=== PATIENT | male | born 1990 | race Caucasian/White ===

== ENCOUNTER 2017-11-15 23:34 | Observation (INO) | payer OTHER ==
[2017-11-15] MEDS ORDERED: ONDANSETRON 4 MG/2 ML VIAL IVP ONE (23:45)
[2017-11-15] MEDS ORDERED: PANTOPRAZOLE SODIUM 80 MG in NS 100 ML IV SCH (23:45)
[2017-11-15] MEDS ORDERED: NS 1,000 ML IV ONE (23:45)
--- NOTE | 2017-11-15 23:45 | EDPHY ---
H & P Stated Complaint: vomiting bright red HPI/ROS: HPI CHIEF COMPLAINT: Hematemesis x2 HISTORY OF PRESENT ILLNESS: This patient is otherwise healthy 27-year-old male does have significant past medical history for reflux, additionally hiatal hernia, and used to be on a PPI but has not taken in 6 months he presents emergency room with 2 episodes of hematemesis he describes bright red blood that filled his mouth. He denies forceful vomiting but states more for reflux and feel his mouth with bright red blood. He denies lower abdominal pain. He does state that he has a history of a hiatal hernia and bad reflux. He has never vomited blood before. He denies black tarry stools. Denies trauma. Denies recent illness or fever. States he has had an EGD in the past. Past Medical History: GERD, hiatal hernia Past Surgical History: Denies any surgical history Social History: Denies daily use of drugs alcohol tobacco. Family History: Noncontributory ROS REVIEW OF SYSTEMS: A comprehensive 10 point review of systems is otherwise negative aside from elements mentioned in the history of present illness. Exam Constitutional appears well nontoxic triage nursing summary reviewed, vital signs reviewed, awake/alert. Eyes normal conjunctivae and sclera, EOMI, PERRLA. HENT normal inspection, atraumatic, moist mucus membranes, no epistaxis, neck supple/ no meningismus, no raccoon eyes. Respiratory clear to auscultation bilaterally, normal breath sounds, no respiratory distress, no wheezing. Cardiovascular rate normal, regular rhythm, no murmur, no edema, distal pulses normal. Gastrointestinal soft, non-tender, no rebound, no guarding, normal bowel sounds, no distension, no pulsatile mass. Genitourinary no CVA tenderness. Musculoskeletal no midline vertebral tenderness, full range of motion, no calf swelling, no tenderness of extremities, no meningismus, good pulses, neurovascularly intact. Skin pink, warm, & dry, no rash, skin atraumatic. Neurologic awake, alert and oriented x 3, AAOx3, moves all 4 extremities equally, motor intact, sensory intact, CN II-XII intact, normal cerebellar, normal vision, normal speech. Psychiatric normal mood/affect. Heme/Lymph/Immune no lymphadenopathy. Differential Diagnosis: Includes but is not limited to in a particular order acute upper GI bleed, peptic ulcer disease, esophageal tear, Mariela-Espinoza tear , esophageal varices Medical Decision Making: Plan for this patient IV establishment blood draw, type and screen, IV fluid bolus, IV Zofran, IV Protonix bolus and IV Protonix drip. Will most likely admit to the hospital for acute upper GI bleed. Consult GI. Re-evaluation: 1248AM: Blood work reviewed. H&H are stable. Vital signs are stable. He did have 1 episode of vomiting of hematemesis here in the emergency room. Was dark colored in nature. Patient has been typed and screen. He has good IV access. Patient received fluid bolus. Protonix bolus ordered and Protonix drip. Patient be admitted to the hospitalist service for acute upper GI bleed. Close monitoring. Gastroenterology be consult as well. ED x-ray chest one view upright. Negative for acute cardiopulmonary disease. 1252: Did re-evaluate the patient is resting comfortably no complaints. He did vomit 1 time here in the emergency room with dark hematemesis. 1255: Consult Gastroenterology Dr. Jones. Plan on seeing the patient and agrees with current plan and management. 0107AM: Spoke with Dr. Luis, agrees to admit. Patient hemodynamically stable plan for EGD in the morning. Protonix bolus Protonix drip right now. Type and screen. Patient has 2 large-bore IVs. Blood pressures been stable. Source: Patient - Personal History Current Tetanus/Diphtheria Vaccine: Yes Current Tetanus Diphtheria and Acellular Pertussis (TDAP): Yes - Medical/Surgical History Hx Asthma: No Hx Chronic Respiratory Disease: No Hx Diabetes: No Hx Cardiac Disease: No Hx Renal Disease: No Hx Cirrhosis: No Hx Alcoholism: No Hx HIV/AIDS: No Hx Splenectomy or Spleen Trauma: No Other PMH: GERD - Social History Smoking Status: Never smoked Constitutional: Initial Vital Signs Temperature (C) 37.2 C 11/15/17 23:39 Heart Rate 87 11/15/17 23:39 Respiratory Rate 18 11/15/17 23:39 Blood Pressure 137/97 H 11/15/17 23:39 O2 Sat (%) 97 11/15/17 23:39 O2 Delivery Mode Room Air Allergies/Adverse Reactions: bee venom protein (honey bee) Allergy (Verified 11/15/17 23:42) Home Medications: Medication Instructions Recorded Acetaminophen [Tylenol 325mg (*)] 650 mg PO Q4HRS PRN tab 11/16/17 Pantoprazole Sodium [Protonix 40mg 40 mg PO BID #60 tab 11/16/17 (*)] Ranitidine HCl 300 mg PO HS #60 tablet 11/16/17 Sucralfate [Carafate 1 GM (*)] 1 gm PO BID #60 tab 11/16/17 Medical Decision Making - Data Points Laboratory Results: Laboratory Results 11/15/17 23:55 11/16/17 00:48 Medications Given: Discontinued Medications Sodium Chloride (Ns) 1,000 mls @ 0 mls/hr IV EDNOW ONE; Wide Open PRN Reason: Protocol Stop: 11/15/17 23:46 Last Admin: 11/16/17 00:08 Dose: 1,000 mls Pantoprazole Sodium 80 mg/ (Sodium Chloride) 100 mls @ 10 mls/hr IV Q10H [facility] Stop: 05/14/18 23:44 Last Admin: 11/16/17 01:08 Dose: 100 mls Sodium Chloride (Ns) 1,000 mls @ 125 mls/hr IV CONT TINY Stop: 05/15/18 01:29 Last Admin: 11/16/17 02:34 Dose: 1,000 mls Pantoprazole Sodium 80 mg/ (Sodium Chloride) 100 mls @ 10 mls/hr IV Q10H [facility] Stop: 05/15/18 10:59 Last Admin: 11/16/17 12:21 Dose: 100 mls Lactated Ringer's (Lr) 1,000 mls @ 0 mls/hr IV ONCE ONE PRN Reason: Per Protocol Stop: 11/16/17 09:41 Last Admin: 11/16/17 12:27 Dose: Not Given Ondansetron HCl (Zofran) 4 mg IVP EDNOW ONE Stop: 11/15/17 23:46 Last Admin: 11/16/17 00:05 Dose: 4 mg Pantoprazole Sodium (Protonix) 40 mg IVP EDNOW ONE Stop: 11/15/17 23:52 Last Admin: 11/16/17 00:07 Dose: 40 mg Sucralfate (Carafate) 1 gm PO BID [facility] Stop: 05/15/18 13:14 Last Admin: 11/16/17 13:25 Dose: 1 gm Departure - Departure Disposition: [facility] In[facility] Acute Clinical Impression: GIB (gastrointestinal bleeding) Qualifiers: GI bleed type/associated pathology: unspecified gastrointestinal hemorrhage type Qualified Code(s): K92.2 - Gastrointestinal hemorrhage, unspecified Condition: Good
[2017-11-15] MEDS ORDERED: PANTOPRAZOLE SODIUM 40 MG VIAL IVP ONE (23:51)
[2017-11-16 00:21] LABS: INR 0.98 (0.83-1.16); PROTIME(PATIENT) 13.2 SEC (12.0-15.0)
[2017-11-16 00:31] LABS: PLATELET COUNT 326 10^3/uL (150-400)
[2017-11-16] MEDS ORDERED: ONDANSETRON 4 MG/2 ML VIAL IVP PRN (01:28)
[2017-11-16] MEDS ORDERED: LORazepam 2 MG/ML INJ IVP PRN (01:28)
[2017-11-16] MEDS ORDERED: ACETAMINOPHEN 325 MG TAB PO PRN (01:28)
[2017-11-16] MEDS ORDERED: NS 1,000 ML IV SCH (01:30)
--- NOTE | 2017-11-16 03:41 | GHP ---
[f rep st] HISTORY AND PHYSICAL DATE OF ADMISSION: 11/16/2017 PRIMARY CARE PHYSICIAN: Unlisted. SOURCE: Patient provides history, appears reliable. at bedside and supplements history. EMR reviewed and case discussed with ED provider. CHIEF COMPLAINT: Hematemesis. HISTORY OF PRESENT ILLNESS: This is a very pleasant 27-year-old gentleman with past medical history significant for GERD and hiatal hernia, who presents to the emergency department with complaints of hematemesis which started approximately 10:30 this evening. Patient reports that he had a first episode of bright red blood in his mouth of reflux-type symptoms. He denies any nausea. No abdominal pain. No distention. Patient reports a second episode at home prior to presenting in the emergency department that was darker in color. It appeared to be closer to coffee-grounds. Patient was previously placed on a PPI and last took consistently any dosing approximately 6 months ago. He denies any history of melena. No abdominal pain. No cramping. He did report 1 episode of diarrhea early in the morning, approximately 11 a.m. He does report a history of chronic persistent substernal reflux-type symptoms that have been more acutely worsened in the last day, and progressively worsening over the past month. Patient without any previous history of known esophagitis or ulcers on previous EGDs by his report. REVIEW OF SYSTEMS: GENERAL: No fevers, chills. SKIN: No rashes, sores. ENT : No sore throat. No rhinorrhea. CV: Patient with chest pain as per HPI related to his reflux symptoms. Remainder review of systems negative except as noted above. ALLERGIES: To bee venom. HOME MEDICATIONS: None. Patient does report he takes occasional ibuprofen, but nothing on a daily, weekly, or regular basis. He only takes it p.r.n. for headaches. PAST MEDICAL HISTORY: Significant for GERD and hiatal. PAST SURGICAL HISTORY: Significant for multiple EGDs and a colonoscopy. FAMILY HISTORY: Negative for peptic ulcer disease. No gastric or colon cancer. No history of diabetes or hypertension. SOCIAL HISTORY: Patient is and lives with his . He does not smoke , drink, or do drugs. CODE STATUS: Full. Patient desires his to act as proxy if needed. PHYSICAL EXAMINATION: VITAL SIGNS: Upon arrival to the emergency department, blood pressure 137/97, heart rate 87, respiratory rate 18, O2 sat 97% on room air with a temperature of 37.2. Current vitals available: Blood pressure 136/ 87, heart rate is 88, respiratory rate is 16, temperature afebrile, saturating 97% on room air. Patient in sinus rhythm on telemetry. GENERAL: In no acute distress. Christina adult gentleman is resting quietly on a gurney. His is at bedside. HEAD: Normocephalic, atraumatic. EYES: Extraocular muscles grossly intact. No scleral icterus or conjunctival injection. Pupils equal, round, react to light bilaterally and symmetric no. ENT: Mucous membranes appear moist. No oropharyngeal erythema or exudates. Patient does have a few flecks of dried blood in the corners of his lips. NECK: Supple. Trachea midline. CV: Regular rate and rhythm. No murmurs, rubs, or gallops appreciated. RESPIRATORY: Lungs are clear to auscultation bilaterally. No wheezes, rales, or rhonchi. Unlabored breathing. ABDOMEN: Soft, nondistended , nontender to palpation. No rebound, guarding, or masses appreciated. : No Buckley in place. No suprapubic tenderness to palpation. EXTREMITIES: No cyanosis, clubbing, or edema appreciated. Patient with 2+ pedal pulses. NEURO : Grossly nonfocal. No facial drooping. Moves all extremities. Strength intact. Patient sits up independently. MUSCULOSKELETAL: Normal as above. PSYCHIATRIC: Does appear slightly anxious, but he is pleasant and cooperative. Thought process, content, and questions are appropriate. LABORATORY STUDIES: WBC 12.58, H and H 15.3 and 42.8, MCV 82.1, platelet count is 326, no bands. PT is 13.2, INR 0.98, PTT is 26.8. Sodium is 142, potassium 4.0, chloride 109, CO2 is 20, anion gap 13, BUN 19, creatinine 0.8, GFR greater than 60, glucose 99, calcium 9.3, total protein is 7.0, albumin 3.9, total bili 0.4, ALT is 86, AST is 36, alk phos is 73, lipase 77. Chest x-ray image reviewed myself, report is still pending; normal without any acute findings. ASSESSMENT AND PLAN: Christina 27-year-old gentleman with history of gastroesophageal reflux disease and hiatal hernia, who presents with complaints of hematemesis. 1. Upper gastrointestinal bleeding. Patient with a longstanding history of uncontrolled gastroesophageal reflux disease, reflux, and hiatal hernia with persistent symptoms. He has had no further episodes of hematemesis since arrival to the emergency department from time of my interview. He does have a small amount of maroon-colored coffee-ground appearing emesis in the cup at bedside. Patient has been started on PPI bolus with continuous drip and IV fluids. Vital signs at this time do appear stable. GI was consulted from the emergency department and will plan to evaluate the patient with EGD in the morning. 2. Gastroesophageal reflux disease. Plan as above. 3. History of hiatal hernia. Patient with previous recommendation not to consider repair, rather continue with medical management. Patient has reported that his reflux symptoms have persisted, although the burning sensation did improve with the PPI, which he did stop 6 months ago. Again, GI will be consulted in the morning. 4. Leukocytosis, mildly elevated, likely reactive in setting of acute gastrointestinal bleeding. Will plan to IV fluid hydrate and repeat a CBC in the morning. 5. Elevated blood pressure without history of hypertension. Patient does appear just slightly anxious. Will continue to monitor. Patient should follow up with PCP on outpatient basis. 6. Fluid, electrolytes, nutrition. Patient receive IV fluids, supplement overnight while n.p.o. All electrolytes will be monitored and replaced if needed. 7. Code status is full. Patient desires to act as proxy if needed. DISPOSITION: Patient has been admitted to observation on the medical floor pending further recommendations after GI evaluation. /[id number]/MODL MTDD
[2017-11-16 07:14] LABS: PLATELET COUNT 258 10^3/uL (150-400)
[2017-11-16] MEDS ORDERED: LR 1,000 ML IV ONE (09:40)
[2017-11-16 09:44] VITALS: TEMP 97.9
[2017-11-16] MEDS ORDERED: PANTOPRAZOLE SODIUM 80 MG in NS 100 ML IV SCH (11:00)
[2017-11-16] MEDS ORDERED: PROPOFOL 200 MG/20 ML VIAL ONE (11:17)
[2017-11-16] MEDS ORDERED: NALOXONE HCL 0.4 MG/ML INJ IVP PRN (11:20)
--- NOTE | 2017-11-16 11:20 | PDANEPAE ---
ANE History of Present Illness 27 year old male here for EGD ANE Past Medical History - Pulmonary History Hx Oxygen in Use at Home: No Hx Sleep Apnea: No Sleep Apnea Screening Result - Last Documented: Positive - Endocrine History Hx Diabetes: No ANE Review of Systems Review of Systems: ANE Patient History - Allergies Allergies/Adverse Reactions: bee venom protein (honey bee) Allergy (Verified 11/15/17 23:42) - Home Medications Home Medications: NK [No Known Home Meds] 11/15/17 [Last Taken Unknown] - NPO status NPO Since - Liquids (Date): 11/16/17 NPO Since - Liquids (Time): 01:00 NPO Since - Solids (Date): 11/16/17 NPO Since - Solids (Time): 01:00 - Smoking Hx Smoking Status: Never smoked VENICE Labs/Vital Signs - Labs Result Diagrams: 11/16/17 07:05 11/16/17 07:05 - Vital Signs Blood Pressure: 134/87 Heart Rate: 78 Respiratory Rate: 16 O2 Sat (%): 94 Height: 190 cm Weight: 97.5 kg VENICE Physical Exam - Airway Mallampati Score: Class 1 - ASA Status ASA Status: II ANE Anesthesia Plan Anesthesia Plan: MAC
--- NOTE | 2017-11-16 11:20 | POSTANESTH ---
Post Anesthetic Evaluation Respiratory Status: Normal, Stable Level of Consciousness/Mental Status: Can Participate in Eval Pain Control: Adequate, Prn Tx Ordered Nausea/Vomiting Control: Adequate, Prn Tx Ordered Complications Possibly Related to Anesthesia: None Noted
--- NOTE | 2017-11-16 11:54 | GIREPORT ---
[facility] Surgical Services - Endoscopy Department Patient Name: Geovany Lemus Procedure Date: 11/16/2017 11:18 AM Patient Type: Inpatient Attending MD/ ER Physician: Alhaji Abebe MD Procedure: Upper GI endoscopy Indications: Heartburn, Hematemesis Providers: Alhaji Abebe MD Medicines: Propofol per Anesthesia Complications: No immediate complications. Description of Procedure: After obtaining informed consent, the endoscope was passed under direct vision. Throughout the procedure, the patient's blood pressure, pulse, and oxygen saturations were monitored continuously. The Endoscope was intro duced through the mouth, and advanced to the second part of duodenum. [facility] [place] endoscopy was accomplished without difficulty. The patient tolerated th e procedure well. Findings: LA Grade C (one or more mucosal breaks continuous between tops of 2 or more mucosal folds, less than 75% circumference) esophagitis with no bleedin g was found 32 to 35 cm from the incisors. Biopsies were taken with a cold fo rceps for histology. A small non-bleeding Mariela-Espinoza tear with stigmata of recent bleedin g was found. A medium-sized hiatal hernia was present. The stomach was normal. The duodenal bulb, first portion of the duodenum and second portion of the duodenum were normal. Estimated Blood Loss: Estimated blood loss: none. Post Op Diagnosis: - LA Grade C reflux esophagitis. Biopsied. - Mariela-Espinoza tear. - Medium-sized hiatal hernia. - Normal stomach. - Normal duodenal bulb, first portion of the duodenum and second portio n of the duodenum. Recommendation: - Advance diet as tolerated. - Use Protonix (pantoprazole) 40 mg PO BID. - Use Zantac (ranitidine) 300 mg PO at bedtime. - Use sucralfate suspension 1 gram PO BID. - Repeat upper endoscopy in 3 months to check healing. - Return to GI office in 4 months. - Return patient to hospital bell for possible discharge same day. - Thank you for allowing me to be involved in the care of your patient. Attending Participation: I personally performed the entire procedure without the assistance of a fellow, resident or surg ical assistant boys track coach. Alhaji Abebe MD Alhaji Abebe MD 11/16/2017 11:54:06 AM This report has been signed electronicallyDavid MD Mis Number of Addenda: 0 Note Initiated On: 11/16/2017 11:18 AM [email or web address]
[2017-11-16 12:11] VITALS: BP 103/65; PULSE 79; RESP 14; O2SAT 95
[2017-11-16] MEDS ORDERED: SUCRALFATE 1 GM TAB PO SCH (13:15)
--- NOTE | 2017-11-16 13:56 | ASMTCMCOM ---
CM Note CM Note Notes: No needs identified, pt will dc home w/support of . CM available for any changes. Date Signed: 11/16/2017 01:55 PM Electronically Signed By:Arely Tomlin RN
--- NOTE | 2017-11-16 14:13 | GDS ---
[f rep st] DISCHARGE SUMMARY ACUTE DIAGNOSES ON THIS ADMISSION: 1. Acute gastrointestinal bleed secondary to reflux and Mariela-Espinoza tear. 2. Alcohol use, not in excess per patient's history. 3. History of gastroesophageal reflux disease and a hiatal hernia seen on an esophagogastroduodenosc opy. CONSULTATIONS: Gastroenterology. PROCEDURES: EGD performed by Dr. Alhaji Abebe showing an LA grade 3 reflux esophagitis which was biop sied, a Mariela-Espinoza tear with stigmata of recent bleeding (which was not bleeding at the time of th e evaluation), normal stomach, and normal duodenal bulb. HOSPITAL COURSE: This is a 27-year-old male with a long history of GERD and a known hiatal hernia, w ho presented with epigastric pain, nausea, vomiting, and hematemesis. He was admitted. His hemoglob in was stable. EGD was performed showing the above noted findings. He tolerated the procedure well with limited blood loss. His hemoglobin was 15.3 on admission and 13.8 at discharge. Case was discussed with Dr. Abebe, and additions of PPI, sucralfate, and ranitidine in the evening. The matters were discussed with the patient specifically and recommended a close followup. DISCHARGE MEDICATIONS: Sucralfate 1 g p.o. b.i.d., ranitidine 300 mg at bedtime, Protonix 40 mg b.i. d. patient is to eliminate the use of alcohol and coffee. He is to elevate the head of his bed 6 in ches to prevent recurrent reflux. Followup will be with Dr. Alhaji Abebe within 1-2 weeks. TIME: This discharge required 40 minutes, greater than 50% to direct selling counselor and coordinate care. All prescriptions were transmitted to the patient's pharmacy. /[id number]/MODL
--- NOTE | 2017-11-16 18:24 | GCON ---
[f rep st] CONSULTATION DATE OF CONSULTATION: 11/16/2017 REFERRING PHYSICIAN: Radha Luis MD INDICATION: Hematemesis. Dear Dr. Luis: Thank you very kindly for asking me to evaluate Mr. Lemus in consultation for hematemesis. He is a [age]-year-old gentleman with a very longstanding reflux disease who brought himself to the emergency dep artment yesterday when he had 2 episodes of hematemesis. The blood was initially red in color, but i n the emergency department became more coffee-ground. He does not take any anticoagulation. He lan es any NSAIDs or alcohol use. He has had a previous endoscopy for reflux which showed a hiatal herni a. He does describe sour, bitter regurgitation pretty routinely, despite the use of Prilosec. He de nies any dysphagia. There has been no melena. His initial hematocrit in the emergency department wa s 42.8, but with hydration it fell to 38.4. His platelets are normal. His coagulation parameters ar e normal. He does have an elevation in his ALT, which today has normalized. I am asked to assist wi th further evaluation and management. PAST MEDICAL HISTORY: Significant for: 1. Chronic heartburn. 2. Known hiatal hernia. PAST SURGICAL HISTORY: Upper endoscopy performed at our office reportedly last year. He does not kn ow the findings. He has also had a previous colonoscopy that he says was normal. FAMILY HISTORY: Negative for heartburn, peptic ulcer disease or cancer. MEDICATIONS: Prilosec once daily. He does admit to an occasional ibuprofen use, but nothing routine ly. ALLERGIES: Bee venom. REVIEW OF SYSTEMS: CONSTITUTIONAL: Denies fever, chills, or night sweats. HEENT: Denies odynophag ia, epistaxis or headache. PULMONARY: He denies cough or shortness of breath. CARDIOVASCULAR: He d enies chest pain, palpitations, or syncope. GASTROINTESTINAL: Negative other than in HPI. RHEUMATOLOGIC: Negative for joint pain or swelling. DERMATOLOGIC: Negative for rash, jaundice or pruritus. GYNECOLOGIC: Negative for any testicular p ain or swelling. GENITOURINARY: Negative for dysuria or hematuria. PSYCHIATRIC: Negative for depr ession or anxiety. ENDOCRINE: No heat or cold intolerance. SOCIAL HISTORY: The patient is with no children. He denies any alcohol, tobacco or substanc e abuse. PHYSICAL EXAMINATION: VITAL SIGNS: Blood pressure is 134/87 with a pulse of 78; respirations are 16 ; oxygenation is 94% on room air. Temperature is 36.6. GENERAL: A healthy male in no acute distres s. Mildly anxious appearing. HEENT: Normocephalic and atraumatic. Oropharynx is clear. NECK: Mercado pple. Nares are without blood. PULMONARY: Clear to auscultation bilaterally. CARDIOVASCULAR: Regu lar rate and rhythm without murmur, rub or gallop. GASTROINTESTINAL: Abdomen is soft. Normal bowel sounds. No organomegaly. No tenderness, rebound o r guarding. MUSCULOSKELETAL: Normal gait and station without joint deformity, swelling or warmth. DE RMATOLOGIC: Negative for jaundice or rash. NEUROLOGIC: Alert to person, place, and time. Cranial nerves 2-12 are normal. Motor is nonfocal. LABORATORY DATA: Database includes the following: Laboratories today showed a white count of 8.9, he matocrit 38.4, platelets 258, INR 0.98, sodium 143, potassium 4.3, chloride 110, bicarbonate 23, BUN 17, creatinine 0.8, AST 27, ALT 72, alkaline phosphatase 63, total protein 6.0, albumin 3.2. Lipase is 77. IMPRESSION: 1. Hematemesis. 2. Reflux. 3. Mild anemia likely secondary to acute blood loss. RECOMMENDATIONS: 1. N.p.o. 2. 80 mg bolus of Protonix with a continuous drip to follow. 3. Type and hold 2 units of packed cells. 4. Serial hematocrit q.8 hours. 5. Upper endoscopy to evaluate his bleeding symptoms and further recommendations to follow. /[id number]/MODL
[2017-11-16] MEDS ORDERED: RANITIDINE HCL 150 MG/10 ML UDCUP PO SCH (21:00)
[2017-11-16] MEDS ORDERED: FAMOTIDINE 20 MG TAB PO SCH (21:00)
[2017-11-16] MEDS ORDERED: PANTOPRAZOLE SODIUM 40 MG TAB PO SCH (21:00)
--- NOTE | 2017-11-17 17:40 | ASDISCHSUM ---
Discharge Information Plan Status:Home with No Needs Medically Cleared to Leave: Discharge Date:11/16/2017 03:25 PM CM D/C Disposition:Home, Routine, Self-Care ADT D/C Disposition:Home, Routine, Self-Care Projected Discharge Date:11/16/2017 03:25 PM Transportation at D/C: Discharge Delay Reason: Follow-Up Date:11/16/2017 03:25 PM Discharge Slot: Final Diagnosis: Placement Information Patient Contact Information Contact Name:GAUTAM Relationship: Address:[address] [place] [address] [place] [id number] Work Phone: City:[facility] Phone: [facility]/Zip Code:[place] [address] Email: Financial Information Financial Class:[employer] [facility] Primary Plan Desc:[employer]MO OPEN ACC [facility] Primary Plan Number:[id number] Secondary Plan Desc: Secondary Plan Number: Assessment Information [facility] CM Progress Note CM Note CM Note Notes: No needs identified, pt will dc home w/support of . CM available for any changes. Date Signed: 11/16/2017 01:55 PM Electronically Signed By:Arely Tomlin RN Intervention Information
== END 2017-11-16 15:25 | disposition home or self-care (01) ==
LOC: INTOOBSV 11-16 01:06 → F3E 11-16 01:59
PROVIDERS: ADMIT Family Medicine; ATTEND Internal Medicine Pulmonary Disease
PROC: 0DB58ZX Excision of Esophagus, Via Natural or Artificial Opening Endoscopic, Diagnostic (ICD-10-PCS; principal; 2017-11-16 10:15)
DX: K92.2 Gastrointestinal hemorrhage, unspecified (principal); K22.6 Gastro-esophageal laceration-hemorrhage syndrome; K21.0 Gastro-esophageal reflux disease with esophagitis; K44.9 Diaphragmatic hernia without obstruction or gangrene; D72.829 Elevated white blood cell count, unspecified; R03.0 Elevated blood-pressure reading, without diagnosis of hypertension; D50.0 Iron deficiency anemia secondary to blood loss (chronic)
CPT/HCPCS: 43239; 71010; G0378; J2405; J2704